=== PATIENT | female | born 1965 | race Caucasian/White ===

== ENCOUNTER → 2024-07-29 09:27 | Outpatient (REF) | payer BC, SELFPAY | LOC: WDC 09:27 | PROVIDERS: ATTENDING PHYSICIAN Obstetrics & Gynecology; FAMILY PHYSICIAN Family Medicine | DX: R92.8 Other abnormal and inconclusive findings on diagnostic imaging of breast (principal) | CPT/HCPCS: 77065 ==

== ENCOUNTER → 2025-02-02 16:38 | Outpatient (REF) | payer BC, SELFPAY | LOC: WDC 16:38 | PROVIDERS: ATTENDING PHYSICIAN Obstetrics & Gynecology; FAMILY PHYSICIAN Family Medicine | DX: R92.8 Other abnormal and inconclusive findings on diagnostic imaging of breast (principal) | CPT/HCPCS: 77061; 77065 ==